=== PATIENT | male | born 2005 | race Caucasian/White ===

== ENCOUNTER 2025-01-15 11:04 | Emergency (ER) | payer BC, SELFPAY ==
[2025-01-15 11:05] VITALS: BP 139/98; PULSE 62; RESP 16; TEMP 36.9; O2SAT 99; BMI 26.1
[2025-01-15 11:32] LABS: Bedside Glucose 92 mg/dL (74-106)
--- NOTE | 2025-01-15 11:38 | EKG12_ITS ---
Test Reason : ARRYTH Blood Pressure : */* mmHG Vent. Rate : 64 BPM Atrial Rate : 64 BPM P-R Int : 146 ms QRS Dur : 104 ms QT Int : 392 ms P-R-T Axes : 22 82 23 degrees QTcB Int : 404 ms Normal sinus rhythm Normal ECG Confirmed by IVY PALACIOS, DONTRELL ([id number]), news videotape editor JONAH RAUSCH ([id number]) on 01/16/2025 8:09:35 AM Referred By: LINDSEY Confirmed By: DONTRELL HAYNES MD
--- NOTE | 2025-01-15 11:40 | RAD_ITS ---
PROCEDURE: CHEST PA AND LATERAL 01/15/2025 REASON FOR EXAM: LIGHTHEADED TECHNIQUE: Frontal and lateral views of the chest. COMPARISON: None FINDINGS: Cardiomediastinal silhouette is within normal limits. Lungs are clear. No sizable pneumothorax. RAD/Chest PA and Lateral IMPRESSION: No acute airspace abnormality. Reading Location: [facility]
[2025-01-15 11:52] VITALS: BP 122/77; BP 124/76; BP 132/89; PULSE 62; PULSE 63; PULSE 95
--- NOTE | 2025-01-15 12:22 | EX.ED.DYSGE1 ---
HPI History of Present Illness Chief Complaint: Dizziness Informant: patient Narrative Narrative: Patient is a 19-year-old male with no known past medical history but strong family history of heart problems presenting with lightheadedness. He is with his girlfriend who was concerned that he could have some type of undiagnosed cardiac abnormality they came in for evaluation. 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 He did not think he was going to pass out. He felt tired and came up from work. His girlfriend convinced him to come in to be evaluated. He notes that his mother had mitral valve disease and 9 years ago (not clear if it was a cardiac complication or associated with sepsis from cholecystitis). He states his dad had an aortic aneurysm. His younger brother was born with congenital heart defect and has had 2 valve replacements and a total of 4 heart surgeries as well as heart caths. Patient is unaware if he is ever had any type of cardiac workup or cardiac ultrasound. He denies any chest pain. He states sometimes his heart race but it is an appropriate response to exercise or exertion. Denies any shortness of breath or dyspnea on exertion. Denies any swelling of his legs. Denies any show DVT or PE. Does vape and use nicotine as well as marijuana. Does not have a primary care doctor and states he has not seen a doctor in 10 years. No fevers or chills. No URI symptoms. No other complaints or concerns reported at this time. PFSH PFSH Allergy/AdvReac Type Severity Reaction Status Date / Time amoxicillin Allergy Intermediate PT UNSURE Verified 01/15/25 11:05 OF REACTION Social History Smoking Status: Never smoker ROS ROS ED Constitutional Constitutional ED: Reports other Details: Lightheaded ; Denies chills or fever(s) Eyes Eyes: Denies blurry vision ENT ENT ED: Denies rhinorrhea or sore throat Cardiovascular Cardiovascular: Denies chest pain, palpitations or racing heartbeat Respiratory/Chest Respiratory/Chest: Denies cough or dyspnea Gastrointestinal Gastrointestinal: Denies nausea or vomiting Musculoskeletal Musculoskeletal: Denies arthralgias or myalgias Integumentary Denies rash Neurologic Neurologic: Denies paresthesias Hematologic/Lymphatic Hematologic/Lymphatic: Denies easy bleeding or easy bruising EXAM Physical Exam Const Vital Signs: 01/15/25 11:05 01/15/25 11:52 Temperature 98.4 F Temperature Source Oral Pulse Rate 62 Pulse Rate [Lying] 62 Pulse Rate [Sitting (for 1 minute prior to obtaining)] 63 Pulse Rate [Standing (for 1 minute prior to obtaining)] 95 Respiratory Rate 16 Blood Pressure 139/98 H Blood Pressure [Lying] 124/76 H Blood Pressure [Sitting (for 1 minute prior to obtaining)] 132/89 H Blood Pressure [Standing (for 1 minute prior to obtaining)] 122/77 H Blood Pressure Mean 111 Blood Pressure Mean [Lying] 92 Blood Pressure Mean [Sitting (for 1 minute prior to obtaining)] 103 Blood Pressure Mean [Standing (for 1 minute prior to obtaining)] 92 Pulse Ox 99 Oxygen Delivery Method Room Air Positive well nourished and well developed General Appearance ED: well developed; Negative for pallor HEENT Reports moist mucous membranes Eyes General Eye ED: Negative for pale conjunctiva or scleral icterus Neck supple and no JVD Chest Wall inspection of chest normal and palpation of chest normal Resp normal respiratory effort and clear to auscultation bilaterally Resp Narrative: No rhonchi or crackles appreciated Cardio regular rate, regular rhythm and no murmurs Cardio Narrative: 2+ radial and DP pulses present Extremity normal to inspection General Extremety ED: Negative for edema General Extremity: Negative for edema Neuro oriented x3 Sensorium / Orientation: alert Motor Exam: Negative for general weakness Psych mental status grossly normal Skin no rashes or lesions noted and no wounds General Skin Exam: Negative for pallor MDM MDM MDM Narrative Medical decision making narrative: Patient evaluated for vague sensation of lightheadedness and fatigue. He appears nontoxic in no acute distress. Vital signs initially show mildly elevated blood pressure but otherwise normal. His blood pressure does normalize while in the emergency room. Given family history of what sounds like congenital heart defects will screen with chest x-ray looking for cardiomegaly, pleural effusion or pneumothorax. Will obtain EKG looking for any conduction abnormalities or repolarization abnormalities. Also obtain orthostatics. Patient clinically is quite well-appearing and largely asymptomatic right now. [id number] glucose obtained and 92. EKG is normal. Chest x-ray viewed by myself as well as radiology does not show any acute process. Orthostatic vital signs positive for heart rate when he stands but normal for blood pressure. He states he is asymptomatic. Patient tells me that he could be dehydrated. Patient feels comfortable pushing fluids at home. I instructed him to drink enough fluids that his urine is pale yellow. He verbalized agreement understand with this. Instructed to go home and rest as he is not feeling great today. Will be given outpatient referral for PCP and cardiology for outpatient evaluation as he likely would benefit from echocardiogram given family history. He is given return precautions. Discharged home in stable condition. History & Record Review Additional record(s) reviewed:: No prior records Lab Data Attestation: I reviewed the patient's lab results. Labs: Laboratory Results - last 24 hr 01/15/25 11:14 POC Glucose 92 Radiography Chest X-Ray - ED: 2 View, Read by ED Physician, Read by Radiologist, Normal and No Acute Disease Diagnostic Testing: Clinical Impression(s) from Imaging Studies Chest X-Ray 01/15/25 11:40 IMPRESSION: No acute airspace abnormality. Reading Location: [facility] Rhythm Strip Rhythm Strip: Sinus Rhythm Rate: 64 Ectopy: None EKG Initial EKG: Attestation: I personally reviewed and interpreted this EKG as follows: Interpretation: Sinus Rhythm Comments: Normal sinus rhythm at a rate of 64 bpm Normal axis Normal intervals Normal ST segments No changes consistent with WPW, prolonged QTc, HOCM or Brugada syndrome Discharge Plan Triage Chief Complaint: Dizziness ED Provider: Nicole Leung Dx/Rx/DC Orders Clinical Impression: Light-headed Instructions: ED Dehydration (Adult), ED Dizziness, Uncertain Cause Stand Alone Forms: ED Work / School Excuse Primary Care Provider: Care Physician,No Primary Referrals: Shanel [facility] [Provider Group] Leroy Diaz MD [Med Staff - Active Staff] - Care Physician,No Primary [Primary Care Provider] - Activity Restrictions/Additional Instructions: Your EKG and chest x-ray are normal today. You likely have a component of dehydration based on orthostatic vital signs. Please follow-up outpatient with primary care and/or cardiology as I do think you would benefit from an outpatient ultrasound of your heart (echocardiogram). When you go home today make sure you are pushing fluids and get rest. Print Language: Cambodian Disposition Disposition: Home, Self Care
[2025-01-15 12:24] VITALS: BP 120/77; PULSE 87; RESP 19; TEMP 36.7; O2SAT 98
--- NOTE | 2025-01-15 13:38 | CM.ED ---
Social Work Patient verified that he does not currently have a PCP. [facility] provider list given, no further needs identified at this time. Alice Bermudez, V BELT SKIVER, FILM CLE[employer]ER
== END 2025-01-15 12:32 | disposition home or self-care (01) ==
PROVIDERS: Emergency Provider Emergency Medicine; Visit Provider Emergency Medicine
DX: R42 Dizziness and giddiness (principal); F17.290 Nicotine dependence, other tobacco product, uncomplicated
CPT/HCPCS: 71046; 82962; 93005; 99282